=== PATIENT | male | born 1990 | race Hispanic/Latino ===

== ENCOUNTER 2022-01-11 10:01 | Emergency (ER) | payer SELFPAY | END 2022-01-11 11:50 | disposition home or self-care (01) | LOC: ERS 10:01 | DX: S60.012A Contusion of left thumb without damage to nail, initial encounter (principal); F17.210 Nicotine dependence, cigarettes, uncomplicated; W23.0XXA Caught, crushed, jammed, or pinched between moving objects, initial encounter ==